=== PATIENT | male | born 1995 | race Caucasian/White ===

== ENCOUNTER 2023-02-02 08:32 | Outpatient (CLI) | payer OTHER | END 2023-02-02 23:59 | disposition home or self-care (01) | LOC: RAD 08:32 | PROVIDERS: ATTEND Family Medicine | DX: M75.52 Bursitis of left shoulder (principal); M75.82 Other shoulder lesions, left shoulder; M24.80 Other specific joint derangements of unspecified joint, not elsewhere classified; M25.512 Pain in left shoulder | CPT/HCPCS: 73221 ==